=== PATIENT | female | born 1935 | race Caucasian/White ===

== ENCOUNTER 2016-11-29 11:25 | Emergency (ER) | payer MEDICARE, OTHER ==
[2016-11-29] MEDS ORDERED: Triple Antibiotic Oint 1 GM Packet ONE (12:14)
[2016-11-29] MEDS ORDERED: Lidocaine 1% 20 ML MDV ONE (12:14)
[2016-11-29] MEDS ORDERED: cefTRIAXone\\ROCEPHIN 1 GM VIAL ONE (12:14)
== END 2016-11-29 12:31 | disposition home or self-care (01) ==
LOC: MADERS 11:25
DX: L03.211 Cellulitis of face (principal); I10 Essential (primary) hypertension; Z79.82 Long term (current) use of aspirin
CPT/HCPCS: 96372; J0696; J2001

== ENCOUNTER 2017-02-28 08:02 | Emergency (ER) | payer MEDICARE ==
--- NOTE | 2017-02-28 09:10 | RAD ---
FRONTAL RADIOGRAPH CHEST: Date: 02/28/17 COMPARISON: None. HISTORY: Bradycardia. FINDINGS: No pneumothorax, pleural fluid, focal consolidation, or alveolar edema. Heart and mediastinal contou r unremarkable. IMPRESSION: No acute findings. POS: [facility]
[2017-02-28 09:20] LABS: #Lymphocytes 0.6 thou/uL (1.20-3.40); #Monocytes 0.9 thou/uL (0.11-0.59); #Neutrophils 8.3 thou/uL (1.40-6.50); %Basophils 0.3 % (0.0-1.0); %Eosinophils 0.2 % (0.0-10.0); %Lymphocytes 6.2 % (21.0-51.0); %Neutrophils 84.3 % (42.0-75.0); Hemoglobin 15.2 g/dL (12.0-16.0); Mean Corpuscular HGB CONC 33.4 g/dL (32.0-36.0); Mean Corpuscular Hemoglobin 29.9 pg (27.0-31.0); Mean Corpuscular Volume 89.7 fl (81.0-99.0); Mean Platelet Volume 6.2 fL (7.4-10.4); Platelet Count 219 thou/uL (130-400); RBC Distribution Width 12.3 % (11.5-14.5); Red Blood Cell (RBC) Count 5.08 mill/uL (4.20-5.40); White Blood Cell (WBC) Count 9.9 thou/uL (4.8-10.8)
[2017-02-28 09:29] LABS: INR-International Normal Ratio 1.1; Prothrombin Time 13.9 SEC (12.0-14.7)
[2017-02-28 09:40] LABS: ALT (SGPT) 18 U/L (8-55); AST (SGOT) 18 U/L (5-34); Albumin 3.6 g/dL (3.4-4.8); Alkaline Phosphatase 62 U/L (40-150); Anion Gap 12 mmol/L (10-20); BUN (Urea Nitrogen) 14 mg/dL (9.8-20.1); Bilirubin, Total 0.9 mg/dL (0.2-1.2); CK (CPK) 32 U/L (29-168); Calc. Creatinine Clearance 0 mL/min (70-130); Carbon Dioxide 29 mmol/L (23-31); Chloride 100 mmol/L (98-107); Estimated GFR-MDRD 55; Globulin 4.2 g/dL (2.4-3.5); Glucose 117 mg/dL (83-110); Potassium 3.8 mmol/L (3.5-5.1); Protein, Total 7.8 g/dL (6.0-8.3); Sodium 137 mmol/L (136-145)
[2017-02-28 09:42] LABS: CKMB 0.9 ng/mL (0-6.6); Troponin I Less than 0.010 ng/mL (< 0.028)
[2017-02-28 11:20] LABS: Bacteria/HPF Rare-Few HPF (None Seen); Bilirubin Negative (Negative); Blood, Urine Trace (Negative); Clarity Clear (Clear); Glucose, Urine (Dipstick) 100 mg/dL (Negative); Leukocyte Negative (Negative); Nitrite Negative (Negative); Protein, Urine (Dipstick) Negative (Neg-Trace); RBC/HPF 0-3 HPF (0-3); Specific Gravity, Urine 1.015 (1.005-1.030); Transitional Epithelial 0-3 HPF (0-3); Urobilinogen 0.2 mg/dL (0.2-1.0); WBC/HPF 0-3 HPF (0-3)
== END 2017-02-28 12:40 | disposition home or self-care (01) ==
LOC: MADERS 08:02
DX: R00.1 Bradycardia, unspecified (principal); I10 Essential (primary) hypertension; Z79.82 Long term (current) use of aspirin; Z79.899 Other long term (current) drug therapy
CPT/HCPCS: 71010; 80053; 81001; 82550; 82553; 83880; 84484; 85025; 85610; 85730; 87086; 93005; 94760; 96360; 96361

== ENCOUNTER 2017-09-14 07:24 | Emergency (ER) | payer MEDICARE ==
[2017-09-14 07:47] LABS: #Basophils 0.1 thou/uL (0.0-0.2); #Lymphocytes 0.8 thou/uL (1.20-3.40); #Monocytes 0.7 thou/uL (0.11-0.59); #Neutrophils 3.9 thou/uL (1.40-6.50); %Eosinophils 0.5 % (0.0-10.0); %Lymphocytes 14.6 % (21.0-51.0); %Monocytes 12.9 % (0.0-10.0); %Neutrophils 71.1 % (42.0-75.0); Hemoglobin 15.4 g/dL (12.0-16.0); Mean Corpuscular HGB CONC 34.5 g/dL (32.0-36.0); Mean Corpuscular Hemoglobin 31.4 pg (27.0-31.0); Mean Corpuscular Volume 90.8 fl (81.0-99.0); Platelet Count 220 thou/uL (130-400); Red Blood Cell (RBC) Count 4.91 mill/uL (4.20-5.40); White Blood Cell (WBC) Count 5.4 thou/uL (4.8-10.8)
[2017-09-14 07:49] LABS: PTT 27.5 SEC (22.9-36.1); Prothrombin Time 13.3 SEC (12.0-14.7)
[2017-09-14 07:57] LABS: ALT (SGPT) 15 U/L (8-55); AST (SGOT) 18 U/L (5-34); Alkaline Phosphatase 66 U/L (40-150); Anion Gap 11 mmol/L (10-20); BUN (Urea Nitrogen) 18 mg/dL (9.8-20.1); Bilirubin, Total 0.8 mg/dL (0.2-1.2); CK (CPK) 27 U/L (29-168); Calc. Creatinine Clearance 0 mL/min (70-130); Calcium 9.6 mg/dL (7.8-10.44); Carbon Dioxide 30 mmol/L (23-31); Chloride 99 mmol/L (98-107); Estimated GFR-MDRD 55; Globulin 4.3 g/dL (2.4-3.5); Glucose 118 mg/dL (83-110); Magnesium 1.7 mg/dL (1.6-2.6); Potassium 3.3 mmol/L (3.5-5.1); Protein, Total 8.3 g/dL (6.0-8.3); Sodium 137 mmol/L (136-145)
[2017-09-14 08:00] LABS: Troponin I 0.015 ng/mL (< 0.028)
--- NOTE | 2017-09-14 08:22 | CT ---
ONCONTRAST HEAD CT: History: Weakness. Possible CVA. Comparison: None. Technique: Noncontrast head CT is performed from skull base to skull vertex. FINDINGS: No parenchymal hemorrhage. No extraaxial hematoma. No midline shift. Basilar cisterns are patent. Bra in volume, age appropriate. Cortical pizano white matter differentiation is preserved. Ventricles and s ulci are patent and symmetric. White matter hypodensity due to chronic small vessel ischemic changes are noted. Chronic changes with remote insult involving the midline of the cerebellum. Calvarium is intact. Right frontal josesito hole defect. Adequate aeration of the sinuses and mastoid air cells. IMPRESSION: No acute intracranial process. Results of the study discussed with Dr. Philippe, 09-14-17 at 7:45 a.m. Code BHARATI POS: [facility]
--- NOTE | 2017-09-14 09:18 | RAD ---
UPRIGHT PORTABLE CHEST 1 VIEW: Date: 09/14/17 HISTORY: 81-year-old female with history of altered mental status. COMPARISON: 02/28/17. FINDINGS: Monitor leads overlie the chest. Heart size is normal. No confluent pneumonia, overt edema, or pleura l effusion. IMPRESSION: No acute intrathoracic disease. Stable from prior study. POS: [facility]
[2017-09-14 09:47] LABS: Bilirubin Negative (Negative); Blood, Urine Trace (Negative); Clarity Clear (Clear); Glucose, Urine (Dipstick) Negative (Negative); Leukocyte Negative (Negative); Nitrite Negative (Negative); Protein, Urine (Dipstick) Negative (Neg-Trace); RBC/HPF 0-3 HPF (0-3); Specific Gravity, Urine 1.015 (1.005-1.030); Urobilinogen 0.2 mg/dL (0.2-1.0); pH, Urine 6.5 (5.0-9.0)
[2017-09-14 09:48] LABS: Bacteria/HPF Rare-Few HPF (None Seen); WBC/HPF 0-3 HPF (0-3)
== END 2017-09-14 09:30 | disposition short-term general hospital (02) ==
LOC: MADERS 07:24
DX: G45.9 Transient cerebral ischemic attack, unspecified (principal); I10 Essential (primary) hypertension; Z79.899 Other long term (current) drug therapy; Z79.82 Long term (current) use of aspirin
CPT/HCPCS: 70450; 71045; 80053; 81001; 82553; 83735; 83880; 84484; 85025; 85610; 85730; 93005

== ENCOUNTER 2018-07-14 03:21 | Emergency (ER) | payer MEDICARE ==
[2018-07-14 04:21] LABS: #Basophils 0.1 thou/uL (0.0-0.2); #Lymphocytes 0.9 thou/uL (1.20-3.40); #Monocytes 0.8 thou/uL (0.11-0.59); #Neutrophils 5.1 thou/uL (1.40-6.50); %Basophils 1.2 % (0.0-1.0); %Eosinophils 0.6 % (0.0-10.0); %Lymphocytes 13.3 % (21.0-51.0); %Monocytes 11.2 % (0.0-10.0); %Neutrophils 73.7 % (42.0-75.0); Hemoglobin 15.8 g/dL (12.0-16.0); Mean Corpuscular HGB CONC 34.1 g/dL (32.0-36.0); Mean Corpuscular Hemoglobin 30.1 pg (27.0-31.0); Mean Corpuscular Volume 88.2 fL (78.0-98.0); Mean Platelet Volume 6.3 fL (7.4-10.4); Platelet Count 216 thou/uL (130-400); RBC Distribution Width 11.9 % (11.5-14.5); Red Blood Cell (RBC) Count 5.26 mill/uL (4.20-5.40); White Blood Cell (WBC) Count 6.9 thou/uL (4.8-10.8)
[2018-07-14] MEDS ORDERED: Morphine 4 MG/ML VIAL ONE ×2 (04:21→04:55)
[2018-07-14] MEDS ORDERED: Sodium Chloride 0.9% 500 ML ONE (04:21)
[2018-07-14] MEDS ORDERED: Ondansetron PF 4 MG/2 ML Vial ONE (04:21)
[2018-07-14] MEDS ORDERED: Ciprofloxacin Lactate/D5W 400 mg/200 ml Premix ONE (04:22)
[2018-07-14] MEDS ORDERED: metroNIDAZOLE 500 MG/100 ML BAG ONE (04:22)
[2018-07-14 04:52] LABS: ALT (SGPT) 14 U/L (8-55); AST (SGOT) 18 U/L (5-34); Alkaline Phosphatase 81 U/L (40-150); Anion Gap 13 mmol/L (10-20); BUN (Urea Nitrogen) 18 mg/dL (9.8-20.1); Bilirubin, Total 0.7 mg/dL (0.2-1.2); Calc. Creatinine Clearance 0 mL/min (70-130); Calcium 9.9 mg/dL (7.8-10.44); Carbon Dioxide 27 mmol/L (23-31); Chloride 102 mmol/L (98-107); Estimated GFR-MDRD 52; Globulin 3.9 g/dL (2.4-3.5); Glucose 149 mg/dL (83-110); Lipase 24 U/L (8-78); Potassium 3.3 mmol/L (3.5-5.1); Protein, Total 7.9 g/dL (6.0-8.3); Sodium 139 mmol/L (136-145)
[2018-07-14 05:58] LABS: Bilirubin Negative (Negative); Blood, Urine Trace (Negative); Clarity Clear (Clear); Glucose, Urine (Dipstick) 100 mg/dL (Negative); Leukocyte Negative (Negative); Nitrite Negative (Negative); Protein, Urine (Dipstick) Negative (Neg-Trace); Urobilinogen 0.2 mg/dL (0.2-1.0); pH, Urine 7.5 (5.0-9.0)
[2018-07-14 06:03] LABS: Bacteria/HPF Rare-Few HPF (None Seen); RBC/HPF 0-3 HPF (0-3); Squamous Epithelial 0-3 HPF (0-3); WBC/HPF 0-3 HPF (0-3)
--- NOTE | 2018-07-14 08:43 | CT ---
PRELIMINARY REPORT/[facility]/EMERGENTY AFTER-HOURS PROCEDURE CT Abdomen and Pelvis With Contrast EXAM DATE/TIME: 07/14/2018 5:10 AM CLINICAL HISTORY: 82 years old, female; Pain; Abdominal pain; Localized; Right lower quadrant (rlq); Patient HX: Rlq pa in since 0200 today with nausea TECHNIQUE: Axial computed tomography images of the abdomen and pelvis with intravenous contrast. All CT scans at this facility use at least one of these dose optimization techniques: automated exposure control; mA and/or kV adjustment per patient size (includes targeted exams where dose is matched to clinical ind ication); or iterative reconstruction. Coronal and sagittal reformatted images were created and revie wed. CONTRAST: 90 ml of ISO 370 administered intravenously. COMPARISON: No relevant prior studies available. FINDINGS: Lower thorax: No acute findings. ABDOMEN: Liver: Normal. No mass. Gallbladder and bile ducts: Gallstones. Pancreas: Normal. No ductal dilation. Spleen: Normal. No splenomegaly. Adrenals: Normal. No mass. Kidneys and ureters: There is prominence of the renal pelvis bilaterally with tapering. No renal ston es. Stomach and bowel: Diverticulosis without diverticulitis. Appendix: No evidence of appendicitis. PELVIS: Bladder: See Reproductive Finding. Reproductive: There is a 3.6 x 2.6 cm cystic structure within the right adnexal region. On image [id number] of series 2 and it is partially indistinct from the adjacent bladder. This could be that diverticul um versus ovarian cyst. ABDOMEN and PELVIS: Intraperitoneal space: Normal. No free air. No significant fluid collection. Bones/joints: Degenerative changes of the visualized spine and pelvis. Soft tissues: Unremarkable. Vasculature: Normal. No abdominal aortic aneurysm. Lymph nodes: Normal. No enlarged lymph nodes. IMPRESSION: 1. No acute appendicitis. 2. Cholelithiasis. 3. 3.6 cm cystic structure within the right adnexal region adjacent to the bladder could be bladder d iverticulum versus ovarian cyst. 4. Diverticulosis without diverticulitis. Thank you for allowing us to participate in the care of your patient. Dictated and Authenticated by: Cora Huerta DO 07/14/2018 5:49 AM Central Time ([place] & [place]) FINAL REPORT EMERGENT AFTER HOURS CT ABDOMEN AND PELVIS: DATE: 07/14/2018. HISTORY: Shooting right lower quadrant abdominal pain with nausea. COMPARISON: None available. IMPRESSION: 1. Cholelithiasis. 2. No CT evidence of appendicitis. 3. Colonic diverticulosis. 4. Low-density structure in the right adnexal region closely adjacent to both the urinary bladder as well as the right ovary. This does demonstrate fluid attenuation and measures approximately 3.6 cm in maximal dimensions. This is thought to most likely be related to a right ovarian cyst, but given the close proximity to the urinary bladder, urinary bladder diverticulum could not be entirely exclud ed. The right ovary is otherwise slightly lobulated in appearance which is nonspecific. 5. Hysterectomy. 6. Prominent left hip osteoarthritis. 7. Findings are in agreement with the preliminary report by [facility]. POS: [facility]
[2018-07-14] MEDS ORDERED: Iopamidol 370 76% 100 ML VIAL ONE (09:59)
[2018-07-14 10:18] LABS: Lactic Acid 2.1 mmol/L (0.5-2.2)
== END 2018-07-14 07:22 | disposition short-term general hospital (02) ==
LOC: MADERS 03:21
DX: R10.31 Right lower quadrant pain (principal); I10 Essential (primary) hypertension; Z79.82 Long term (current) use of aspirin; Z79.899 Other long term (current) drug therapy
CPT/HCPCS: 36415; 74177; 80053; 81003; 81015; 83605; 83690; 85025; 96365; 96367; 96375; 96376; J0744; J2270; J2405; J7050

== ENCOUNTER 2019-08-23 11:34 | Emergency (ER) | payer MEDICARE ==
[2019-08-23 12:38] LABS: #Basophils 0.1 thou/uL (0.0-0.2); #Lymphocytes 1.2 thou/uL (1.20-3.40); #Monocytes 0.8 thou/uL (0.11-0.59); #Neutrophils 5.7 thou/uL (1.40-6.50); %Basophils 0.7 % (0.0-1.0); %Eosinophils 0.2 % (0.0-10.0); %Lymphocytes 15.2 % (21.0-51.0); %Monocytes 10.2 % (0.0-10.0); %Neutrophils 73.8 % (42.0-75.0); Hemoglobin 14.9 g/dL (12.0-16.0); Mean Corpuscular HGB CONC 31.4 g/dL (32.0-36.0); Mean Corpuscular Hemoglobin 27.6 pg (27.0-31.0); Mean Platelet Volume 6.1 fL (7.4-10.4); Platelet Count 305 thou/uL (130-400); RBC Distribution Width 12.5 % (11.5-14.5); Red Blood Cell (RBC) Count 5.41 mill/uL (4.20-5.40); White Blood Cell (WBC) Count 7.7 thou/uL (4.8-10.8)
[2019-08-23 12:43] LABS: INR-International Normal Ratio 0.9; Prothrombin Time 12.2 SEC (12.0-14.7)
--- NOTE | 2019-08-23 12:52 | CT ---
EXAM: Brain CT scan Without contrast: HISTORY: Altered mental status without trauma COMPARISON: 02/06/2019 FINDINGS: Stable encephalomalacia and brain volume loss in the posterior fossa particularly the left cerebellar hemisphere and vermis Atrophy and chronic white matter ischemic change. No focal mass or midline shift. No intra or extra-axial hemorrhage. The visualized sinuses and mastoids are clear of acute process. IMPRESSION: No mass or bleed or other significant acute intracranial process. Stable exam.
[2019-08-23 12:54] LABS: ALT (SGPT) 18 U/L (8-55); AST (SGOT) 21 U/L (5-34); Albumin 4.1 g/dL (3.4-4.8); Alkaline Phosphatase 69 U/L (40-110); Anion Gap 14 mmol/L (10-20); BUN (Urea Nitrogen) 13 mg/dL (9.8-20.1); Bilirubin, Total 1.5 mg/dL (0.2-1.2); Calc. Creatinine Clearance 0 mL/min (70-130); Calcium 9.3 mg/dL (7.8-10.44); Carbon Dioxide 28 mmol/L (23-31); Chloride 99 mmol/L (98-107); Estimated GFR-MDRD 67; Glucose 104 mg/dL (83-110); Potassium 3.4 mmol/L (3.5-5.1); Protein, Total 8.1 g/dL (6.0-8.3); Sodium 138 mmol/L (136-145)
[2019-08-23 12:58] LABS: Bilirubin Negative (Negative); Blood, Urine Trace (Negative); Clarity Clear (Clear); Glucose, Urine (Dipstick) Negative (Negative); Leukocyte Negative (Negative); Nitrite Negative (Negative); Protein, Urine (Dipstick) Negative (Neg-Trace); Urobilinogen 0.2 mg/dL (Less than 2)
[2019-08-23 12:59] LABS: Bacteria/HPF Rare-Few HPF (None Seen); RBC/HPF 0-3 HPF (0-3); Squamous Epithelial 0-3 HPF (0-3); WBC/HPF None Seen HPF (0-3)
[2019-08-23] MEDS ORDERED: Aspirin Chewable 81 MG TAB ONE (14:09)
== END 2019-08-23 15:30 | disposition short-term general hospital (02) ==
LOC: MADERS 11:34
DX: G45.9 Transient cerebral ischemic attack, unspecified (principal); I10 Essential (primary) hypertension; Z86.73 Personal history of transient ischemic attack (TIA), and cerebral infarction without residual deficits; Z79.82 Long term (current) use of aspirin; Z79.899 Other long term (current) drug therapy
CPT/HCPCS: 36415; 70450; 80053; 81003; 81015; 84484; 85025; 85610; 93005

== ENCOUNTER 2020-03-09 13:59 | Emergency (ER) | payer MEDICARE ==
--- NOTE | 2020-03-09 14:45 | CT ---
CT BRAIN WITHOUT CONTRAST: HISTORY:Injury, headache COMPARISON:01/21/2020 FINDINGS: There are foci of decreased attenuation in the periventricular white matter, consistent with chronic small vessel ischemic disease. Encephalomalacia in the left cerebellar hemisphere is stable. No evidence of acute infarct, hemorrhage, midline shift or abnormal extra-axial fluid collections is seen. The ventricular size is appropriate and the basilar cisterns are patent. The bony calvarium is intact, except for the right frontal josesito hole.. The visualized paranasal sinuses and mastoid air cells are well aerated. There is soft tissue swellin g in the left periorbital and frontal region. IMPRESSION: No CT evidence of acute intracranial process.
--- NOTE | 2020-03-09 14:50 | CT ---
CT CERVICAL SPINE WITH CORONAL AND SAGITTAL REFORMATIONS AND NO IV CONTRAST: HISTORY: Injury, neck pain FINDINGS: Multilevel degenerative changes are present, most prominent at C5-6 level. No fracture, subluxation or facet malalignment is identified. No prevertebral soft tissue swelling is apparent. The visualized lung apices are unremarkable. IMPRESSION: No CT evidence for fracture or traumatic subluxation.
== END 2020-03-09 15:00 | disposition home or self-care (01) ==
LOC: MADERS 13:59
DX: S00.83XA Contusion of other part of head, initial encounter (principal); I10 Essential (primary) hypertension; I67.1 Cerebral aneurysm, nonruptured; Z87.891 Personal history of nicotine dependence; Z86.73 Personal history of transient ischemic attack (TIA), and cerebral infarction without residual deficits; Z79.82 Long term (current) use of aspirin; Z79.899 Other long term (current) drug therapy; W10.9XXA Fall (on) (from) unspecified stairs and steps, initial encounter
CPT/HCPCS: 70450; 72125

== ENCOUNTER 2023-06-29 14:31 | Emergency (ER) | payer OTHER ==
[2023-06-29 15:13] LABS: Anion Gap 14 mmol/L (10-20); BUN (Urea Nitrogen) 14 mg/dL (9.8-20.1); CK (CPK) 27 U/L (29-168); Calc. Creatinine Clearance 0 mL/min (70-130); Calcium 8.7 mg/dL (7.8-10.44); Carbon Dioxide 24 mmol/L (23-31); Chloride 104 mmol/L (98-107); Estimated GFR 46; Glucose 185 mg/dL (83-110); Potassium 3.5 mmol/L (3.5-5.1); Sodium 138 mmol/L (136-145)
[2023-06-29 15:14] LABS: Band 2 % (5-11); Hematocrit 31.1 % (36.0-47.0); Hemoglobin 9.7 g/dL (12.0-16.0); Hypochromia SLIGHT = 6-15 cells (100X) (0-5/hpf); Lymphocytes 2 % (21-51); MDiff Complete? YES; Mean Corpuscular HGB CONC 31.3 g/dL (32.0-36.0); Mean Corpuscular Volume 86.2 fl (78.0-98.0); Mean Platelet Volume 6.4 fL (7.4-10.4); Monocytes 6 % (0-10); Neutrophil 88 % (42-75); Platelet Count 243 10x3/uL (130-400); Polychromasia SLIGHT = 2-3 cells (100X) (0-2/hpf); RBC Distribution Width 14.6 % (11.5-14.5); Red Blood Cell (RBC) Count 3.61 mill/uL (4.20-5.40); White Blood Cell (WBC) Count 7.8 10x3/uL (4.8-10.8)
[2023-06-29 15:15] LABS: Manual Diff?? YES; Platelet Adequacy Comment Appears Adequate; Reactive Lymphocytes 2 % (0-10); Troponin I 0.013 ng/mL (< 0.028)
== END 2023-06-29 16:07 | disposition home or self-care (01) ==
LOC: MADERS 14:31
DX: S02.2XXA Fracture of nasal bones, initial encounter for closed fracture (principal); I67.9 Cerebrovascular disease, unspecified; I10 Essential (primary) hypertension; Z87.891 Personal history of nicotine dependence; Z79.899 Other long term (current) drug therapy; W01.0XXA Fall on same level from slipping, tripping and stumbling without subsequent striking against object, initial encounter
CPT/HCPCS: 36415; 70450; 70486; 71045; 72170; 80048; 82550; 83880; 84484; 85025; 93005